=== PATIENT | male | born 1980 | race Hispanic/Latino ===

== ENCOUNTER 2022-04-01 18:37 | Emergency (ER) | payer SELFPAY ==
[2022-04-01 19:23] VITALS: BP 121/80
[2022-04-01 19:30] VITALS: BP 118/76
[2022-04-01] MEDS ORDERED: PAXLOVID PO ×2 (19:45→19:46)
[2022-04-01] MEDS ORDERED: NAPROXEN500 MG PO ×2 (19:45→19:46)
[2022-04-01 20:02] VITALS: BP 118/76
== END 2022-04-01 20:13 | disposition home or self-care (01) | DRG 179 ==
LOC: ED 18:37
DX: U07.1 COVID-19 (principal); R50.9 Fever, unspecified; R05.9 Cough, unspecified; R19.7 Diarrhea, unspecified; M79.10 Myalgia, unspecified site

== ENCOUNTER 2022-04-02 16:08 | Emergency (ER) | payer SELFPAY ==
[~2022-04-02 16:08] MED LIST: NAPROXEN500 MG PO; PAXLOVID PO
[2022-04-02 17:52] VITALS: BP 122/90
[2022-04-02 18:00] VITALS: BP 123/88
[2022-04-02 18:30] VITALS: BP 123/84
[2022-04-02 18:51] LABS: HEMATOCRIT 43.2 % (39.0-50.0); HEMOGLOBIN 14.6 g/dl (14.0-18.0); IMMATURE GRANULOCYTES 1.2 % (0.0-5.0); MEAN CELL VOLUME 87.8 fL CALC (80.0-100.0); MEAN CORPUSCULAR HGB 29.7 pG CALC (26.0-32.0); MEAN CORPUSCULAR HGB CONC 33.8 g/dL CAL (32.0-36.0); NEUT# 2.63 thou/uL (1.82-7.42); RED BLOOD COUNT 4.92 mill/uL (4.70-6.10); RED CELL DISTRI WIDTH 11.8 % (11.5-15.5)
[2022-04-02 20:00] VITALS: BP 123/84
== END 2022-04-02 20:20 | disposition home or self-care (01) | DRG 179 ==
LOC: ED 16:08
PROVIDERS: Family Medicine
DX: U07.1 COVID-19 (principal); R06.02 Shortness of breath; R51.9 Headache, unspecified; R07.9 Chest pain, unspecified

== ENCOUNTER 2023-01-15 09:42 | Emergency (ER) | payer SELFPAY ==
[~2023-01-15] VITALS: Ht 172.7 cm; Wt 89.0 kg
[2023-01-15 09:54] VITALS: BP 141/86
[2023-01-15 10:01] VITALS: BP 137/84
[2023-01-15] MEDS ORDERED: AMLODIPINE BESYL5 MG PO (10:21)
[2023-01-15 10:24] LABS: BASO% 0.3 % (0-3); EOS% 2.6 % (0-8); HEMATOCRIT 41.1 % (39.0-50.0); HEMOGLOBIN 14.2 g/dl (14.0-18.0); IMMATURE GRANULOCYTES 0.6 % (0.0-5.0); LYMPH% 15.2 % (15-41); MEAN CELL VOLUME 85.3 fL CALC (80.0-100.0); MEAN CORPUSCULAR HGB 29.5 pG CALC (26.0-32.0); MEAN CORPUSCULAR HGB CONC 34.5 g/dL CAL (32.0-36.0); MONO% 11.8 % (2-13); NEUT# 4.76 thou/uL (1.82-7.42); NEUT% 69.5 % (42-76); RED BLOOD COUNT 4.82 mill/uL (4.70-6.10); RED CELL DISTRI WIDTH 11.3 % (11.5-15.5)
[2023-01-15 10:30] VITALS: BP 130/80
[2023-01-15 10:32] LABS: ALBUMIN 4.6 g/dL (3.2-5.0); ALKALINE PHOSPHATASE 160 u/l (38-126); ANION GAP 15 (6-22 (CALC)); BILIRUBIN, TOTAL 0.7 mg/dL (0.2-1.3); BUN 12 mg/dL (9-20); BUN/CREATININE RATIO 18 (12-20 (CALC)); CARBON DIOXIDE 23 mmol/l (22-30); CHLORIDE 95 mmol/l (95-108); CREATININE 0.7 mg/dL (0.7-1.3); GFR FOR AFR.AMER. > 60 ML/MIN (>=60 (CALC)); GFR OTHER RACES > 60 ML/MIN (>=60 (CALC)); POTASSIUM 4.4 mmol/l (3.5-5.1); SGOT/AST 33 u/l (17-59); SODIUM 128 mmol/l (137-146); TOTAL PROTEIN 7.9 g/dL (6.3-8.2)
[2023-01-15 11:00] VITALS: BP 128/82
[2023-01-15 12:03] LABS: URINE BILIRUBIN - DIPSTICK NEGATIVE (NEGATIVE); URINE BLOOD DIPSTICK TRACE-LYSED (NEGATIVE); URINE COLOR YELLOW; URINE GLUCOSE - DIPSTICK >=1000 mg/dL (NEGATIVE); URINE KETONE 15 mg/dL (NEGATIVE); URINE LEUK ESTERASE NEGATIVE (NEGATIVE); URINE PROTEIN - DIPSTICK NEGATIVE (NEG-TRACE); URINE SPECIFIC GRAVITY <=1.005; URINE UROBILINOGEN - DIPSTICK 0.2 E.U./dL (0.2)
[2023-01-15 12:11] LABS: URINE NITRITE - DIPSTICK NEGATIVE (Negative)
[2023-01-15] MEDS ORDERED: METFORMIN HCL1000 MG PO (12:35)
[2023-01-15 12:55] VITALS: BP 128/82
== END 2023-01-15 13:11 | disposition home or self-care (01) | DRG 639 ==
LOC: ED 09:42
PROVIDERS: Family Medicine
DX: E11.65 Type 2 diabetes mellitus with hyperglycemia (principal)

== ENCOUNTER 2023-06-07 13:28 | Emergency (ER) | payer OTHER ==
[2023-06-07] VITALS (18 sets, daily range): BP systolic 122–144; BP diastolic 65–99
[~2023-06-07] VITALS: Ht 172.7 cm; Wt 94.4 kg
[~2023-06-07 13:28] MED LIST changes: +AMLODIPINE BESYL5 MG PO; +METFORMIN HCL1000 MG PO
[2023-06-07 15:21] LABS: BASO% 0.3 % (0-3); EOS% 2.4 % (0-8); HEMATOCRIT 42.7 % (39.0-50.0); HEMOGLOBIN 14.3 g/dl (14.0-18.0); IMMATURE GRANULOCYTES 1.2 % (0.0-5.0); MEAN CELL VOLUME 90.3 fL CALC (80.0-100.0); MEAN CORPUSCULAR HGB 30.2 pG CALC (26.0-32.0); MEAN CORPUSCULAR HGB CONC 33.5 g/dL CAL (32.0-36.0); NEUT# 4.37 thou/uL (1.82-7.42); NEUT% 56.1 % (42-76); RED BLOOD COUNT 4.73 mill/uL (4.70-6.10)
[2023-06-07 16:36] LABS: ALBUMIN 4.9 g/dL (3.2-5.0); BILIRUBIN, TOTAL 0.7 mg/dL (0.2-1.3); BUN 9 mg/dL (9-20); BUN/CREATININE RATIO 13 (12-20 (CALC)); CARBON DIOXIDE 26 mmol/l (22-30); CHLORIDE 101 mmol/l (95-108); CREATININE 0.7 mg/dL (0.7-1.3); GFR FOR AFR.AMER. > 60 ML/MIN (>=60 (CALC)); GFR OTHER RACES > 60 ML/MIN (>=60 (CALC)); POTASSIUM 3.9 mmol/l (3.5-5.1)
[2023-06-07 16:50] LABS: ALKALINE PHOSPHATASE 69 u/l (38-126); ANION GAP 14 (6-22 (CALC)); SGOT/AST 65 u/l (17-59); SODIUM 137 mmol/l (137-146)
[2023-06-07 16:56] LABS: URINE BILIRUBIN - DIPSTICK Negative (NEGATIVE); URINE BLOOD DIPSTICK Negative (NEGATIVE); URINE GLUCOSE - DIPSTICK Negative (NEGATIVE); URINE KETONE Negative (NEGATIVE); URINE LEUK ESTERASE Negative (NEGATIVE); URINE NITRITE - DIPSTICK Negative (Negative); URINE PROTEIN - DIPSTICK Negative (NEG-TRACE); URINE SPECIFIC GRAVITY 1.015; URINE UROBILINOGEN - DIPSTICK 0.2 E.U./dL (0.2)
[2023-06-07 16:58] LABS: URINE COLOR Yellow
== END 2023-06-07 18:39 | disposition home or self-care (01) | DRG 639 ==
LOC: ED 13:28
PROVIDERS: Family Medicine
DX: E11.65 Type 2 diabetes mellitus with hyperglycemia (principal); I10 Essential (primary) hypertension; Z79.84 Long term (current) use of oral hypoglycemic drugs
CPT/HCPCS: Q9967